=== PATIENT | male | born 2000 | race Asian ===

== ENCOUNTER 2022-06-02 11:29 | Inpatient (IN) ==
[2022-06-02] MEDS ORDERED: SODIUM CHLORIDE 0.9% 1000ML 1,000 ML IV ONE ×2 (11:44→14:11)
--- NOTE | 2022-06-02 11:49 | Emergency Department Note ---
History of Present Illness General Chief complaint: Abdominal Pain Stated complaint: REF BY DR APPENDICITIS Time Seen by Provider: 06/02/22 11:32 Source: patient, family and old records reviewed Mode of arrival: ambulatory History of Present Illness Maximum Pain Intensity: 1 This patient is a 22-year-old male who comes in complaint of abdominal pain and nausea. He seen here last evening and had nausea and emesis he went home and took Zofran he got worse throughout the night and he did have nausea and abdominal pain he says it comes in waves it in the lower abdomen. He saw primary doctor today who ordered outpatient ultrasound and shows appendicitis with possible rupture at present he feels okay. Nothing particular makes it better or worse is a slight fever no testicular pain or swelling no dysuria hematuria he was constipated until today when he had some diarrhea. He has had no real food since Sunday and has had just sips of clears. He has been throwing up most of that. Home Medications Medication Instructions Recorded Confirmed Type ondansetron 4 mg disintegrating 4 mg PO Q8H PRN nausea and 06/01/22 06/02/22 Rx tablet vomiting #30 tabs Allergies Allergy/AdvReac Type Severity Reaction Status Date / Time Penicillins AdvReac Mild Hives Verified 06/02/22 16:15 Past Med/Surg History Medical History No pertinent family history No pertinent past medical history Surgical History No pertinent past surgical history Social History Smoking Status: Never smoker Preferred Language: Malay Feels Safe at Home: Yes Immunizations: Past med history denies any significant past medical history of surgery All-penicillin which gave him hives as a child Social historydoes not smoke. Drinks occasionally. Occasional marijuana but none recently Review of Systems A total of 10 systems reviewed and were otherwise negative Physical Exam Vital Signs Vital Signs - 24 hr 06/02/22 11:32 06/02/22 13:23 06/02/22 13:35 Temperature 36.8 C Temperature Source Temporal Artery Scan Pulse Rate 70 Pulse Rate [Right Finger] 63 Respiratory Rate 18 16 Respiratory Effort / Characteristics Non-Labored Spontaneous Non-Labored Respiratory Depth Normal Normal Respiratory Pattern Regular Blood Pressure 159/94 H Blood Pressure [Right Arm] 155/79 H Blood Pressure Mean 115 Blood Pressure Mean [Right Arm] 104 Blood Pressure Position Sitting Pulse Oximetry 98 99 98 Oxygen Delivery Method Room Air Room Air Sepsis Recent Fever Within 48 Hours No Sepsis New/Unexplained Change in Mental Status No Sepsis Action Taken by Nursing No Action Required General: Well developed well nourished [id number] young male who appears in no acute distress, breathing comfortably on room air. Normal speech HEENT: Normal cephalic atraumatic. Pupils are equal round and reactive to light. Extraocular movements are intact. Oropharynx is pink with moist mucous membranes. No swelling of the mouth lips or tongue. Neck: Supple with a midline trachea. No meningeal signs or stiffness, no JVD or bruits. No Stridor. Chest: Clear to auscultation bilaterally. No wheezes or rhonchi. No increased work of breathing. Heart: Regular rate and rhythm without murmurs or gallops. Abdomen: Soft, mildly tender in the right lower abdomen but nondistended without rebound guarding or rigidity. Extremities: No cyanosis clubbing or edema. No calf tenderness or assymetry Spine/Back. Non tender to palpation. No CVA tenderness Skin: Good turgor without rashes. Neurologic exam: Cranial nerves two through 12 are intact. Motor and sensation are intact and symmetrical throughout. Course Administered Medications Discontinued Medications Sodium Chloride (Nss 1000ml) 1,000 mls @ 999 mls/hr IV .Q1H1M ONE Stop: 06/02/22 12:44 Last Infusion: 06/02/22 13:14 Dose: 0 mls/hr Documented By: Admin: 06/02/22 12:06 Dose: 999 mls/hr Documented By: DELL Sodium Chloride (Nss 1000ml) 1,000 mls @ 999 mls/hr IV .Q1H1M ONE Stop: 06/02/22 15:11 Last Infusion: 06/02/22 15:23 Dose: 0 mls/hr Documented By: Admin: 06/02/22 14:16 Dose: 999 mls/hr Documented By: DALE Morphine Sulfate (Morphine Sulfate 2 Mg/Ml Carp) 2 mg IV NOW STA Stop: 06/02/22 13:20 Last Admin: 06/02/22 13:23 Dose: 2 mg Documented By: DELL Morphine Sulfate (Morphine Sulfate 4 Mg/Ml 1 Ml Carp\Vial) 4 mg IV NOW STA Stop: 06/02/22 14:00 Last Admin: 06/02/22 14:06 Dose: 4 mg Documented By: ABYK Ondansetron HCl (Ondansetron Inj 2 Mg/Ml 2 Ml Vial) 4 mg IV NOW STA Stop: 06/02/22 13:20 Last Admin: 06/02/22 13:23 Dose: 4 mg Documented By: DELL Ondansetron HCl (Ondansetron Inj 2 Mg/Ml 2 Ml Vial) 4 mg IV NOW STA Stop: 06/02/22 14:11 Last Admin: 06/02/22 14:17 Dose: 4 mg Documented By: ABYK Medical Decision Making Differential Diagnosis Appendicitis, ruptured appendicitis, sepsis, electrolyte or metabolic abnormality, dehydration Medical Records Attestation: I reviewed the patient's medical records. Home Medications Current Medication List: was personally reviewed by me Laboratory Data Attestation: I reviewed the patient's lab results. 06/02/22 12:05 06/02/22 12:05 Lab Results 06/02/22 06/02/22 06/02/22 Range/Units 12:05 12:05 12:05 WBC 9.05 (4.8-10.8) K/ul RBC 5.52 (4.70-6.10) M/uL Hgb 16.1 (14.0-18.0) g/dl Hct 48.0 (42.0-52.0) % MCV 87.0 (80.0-100.0) fL MCH 29.2 (25.0-34.0) pg MCHC 33.5 (32.0-36.0) g/dL RDW Std Deviation 39.6 (36.4-46.3) fL RDW Coeff of Paulina 12.5 (11.5-14.5) % Plt Count 256 (130-400) K/uL MPV 11.3 (9.4-12.4) fL Immature Gran % (Auto) 0.2 % Neut % (Auto) 78.9 % Lymph % (Auto) 14.5 % [place] % (Auto) 6.3 % Eos % (Auto) 0.0 % Baso % (Auto) 0.1 % Neut # (Auto) 7.14 H (1.40-6.50) K/uL Lymph # (Auto) 1.31 (1.2-3.4) K/uL [place] # (Auto) 0.57 (0.11-0.59) K/uL Eos # (Auto) 0.00 (0-0.50) K/uL Baso # (Auto) 0.01 (0-0.2) K/uL Immature Gran # (Auto) 0.02 (0.01-0.20) K/uL PT 10.9 (9.0-12.0) Seconds INR 1.0 (0.9-1.1) APTT 28.6 (21.0-31.0) Seconds PTT Ratio 1.0 Sodium 138 (136-145) mmol/L Potassium 3.2 L (3.5-5.1) mmol/L Chloride 99 (98-107) mmol/L Carbon Dioxide 27 (21-32) mmol/L Anion Gap 12 H (3-11) BUN 11 (6-23) mg/dl Creatinine 0.74 (0.6-1.4) mg/dl Est Cr Clr Drug Dosing 155.9 ml/min Est GFR ( Amer) > 150.0 ml/min Est GFR (Non-Af Amer) 130.9 ml/min BUN/Creatinine Ratio 14.9 (10-20) Glucose 88 (70-99(Fasting)) mg/dl Calcium 10.0 (8.5-10.1) mg/dl Total Bilirubin 1.3 H (0.2-1.0) mg/dl AST 17 (13-39) U/L ALT 12 (7-52) U/L Alkaline Phosphatase 42 (34-104) U/L Total Protein 8.5 H (6.0-8.3) gm/dl Albumin 5.5 H (3.4-5.0) gm/dl Globulin 3.0 (2.5-4.0) gm/dl Albumin/Globulin Ratio 1.8 (0.9-2) Lipase 8 L (11-82) U/L SARS-CoV-2, RNA, NAAT (NEGATIVE) 06/02/22 Range/Units 12:08 WBC (4.8-10.8) K/ul RBC (4.70-6.10) M/uL Hgb (14.0-18.0) g/dl Hct (42.0-52.0) % MCV (80.0-100.0) fL MCH (25.0-34.0) pg MCHC (32.0-36.0) g/dL RDW Std Deviation (36.4-46.3) fL RDW Coeff of Paulina (11.5-14.5) % Plt Count (130-400) K/uL MPV (9.4-12.4) fL Immature Gran % (Auto) % Neut % (Auto) % Lymph % (Auto) % [place] % (Auto) % Eos % (Auto) % Baso % (Auto) % Neut # (Auto) (1.40-6.50) K/uL Lymph # (Auto) (1.2-3.4) K/uL [place] # (Auto) (0.11-0.59) K/uL Eos # (Auto) (0-0.50) K/uL Baso # (Auto) (0-0.2) K/uL Immature Gran # (Auto) (0.01-0.20) K/uL PT (9.0-12.0) Seconds INR (0.9-1.1) APTT (21.0-31.0) Seconds PTT Ratio Sodium (136-145) mmol/L Potassium (3.5-5.1) mmol/L Chloride (98-107) mmol/L Carbon Dioxide (21-32) mmol/L Anion Gap (3-11) BUN (6-23) mg/dl Creatinine (0.6-1.4) mg/dl Est Cr Clr Drug Dosing ml/min Est GFR ( Amer) ml/min Est GFR (Non-Af Amer) ml/min BUN/Creatinine Ratio (10-20) Glucose (70-99(Fasting)) mg/dl Calcium (8.5-10.1) mg/dl Total Bilirubin (0.2-1.0) mg/dl AST (13-39) U/L ALT (7-52) U/L Alkaline Phosphatase (34-104) U/L Total Protein (6.0-8.3) gm/dl Albumin (3.4-5.0) gm/dl Globulin (2.5-4.0) gm/dl Albumin/Globulin Ratio (0.9-2) Lipase (11-82) U/L SARS-CoV-2, RNA, NAAT POSITIVE A* (NEGATIVE) Imaging Data Radiologist's Impression: US appendix HISTORY: 22 years-old Male r/o appendicitis. Acute right lower quadrant abdominal pain COMPARISON: Acute abdominal series radiographs 06/01/2022 TECHNIQUE: Multiple real-time sonographic images of the abdominal right lower quadrant were obtained assessing grayscale appearance and color flow FINDINGS: There is a tubular blind-ending noncompressible structure within the abdominal right lower quadrant which is hyperemic measuring up to 8 mm transversely. This demonstrates a thickened wall measuring up to 2.5 cm. Possible focal area of wall discontinuity. No drainable fluid collections. There is increased echogenicity of the periappendiceal fat. IMPRESSION: Acute appendicitis with possible discontinuity of the wall, equivocal for perforation. No abscess identified. The patient was instructed to go straight from this outpatient facility to the ER. MDM Narrative This patient comes in as scribed above. He was sent over after being found to have acute appendicitis with possible rupture in the outpatient ultrasound. He says he feels okay at present. He has stable vital signs. He was kept NPO. IV X established hydrated 1 L normal saline bolus, he was COVID tested and blood work was obtained I did consult surgery as well. I did talk to Dr. Lurdes Alanis, the surgeon on-call and explained the case and the findings. She agrees with the plan and both her and her physician back office medical assistant came to see the patient in the emergency department. I also touch base and talk to them at length while they were here. his white count is not elevated. He has no severe electrolyte or me tabolic abnormalities. The patient has had some intermittent pain and did get IV morphine x2 as well as IV Zofran. He is resting comfortably with this. His COVID test did come back positive. He will be admitted for further treatment and evaluation antibiotics and likely surgery. Impression & Plan Acute appendicitis, Nausea & vomiting, Abdominal pain, COVID Discharge Plan Visit Data Chief Complaint: Abdominal Pain Stated Complaint: REF BY DR, APPENDICITIS ED Provider: Moiz Lozada Discharge Problem: Acute appendicitis, Nausea & vomiting, Abdominal pain, COVID Patient Disposition: Admitted As Inpatient Discharge Instructions Interventions: ED Discharge Assessment Last Done: 06/02/22 16:40
[2022-06-02 12:38] LABS: Basophils # (auto) 0.01 K/uL (0-0.2); Basophils % (auto) 0.1 %; Hemoglobin 16.1 g/dl (14.0-18.0); Immature Granulocytes # (auto) 0.02 K/uL (0.01-0.20); Immature Granulocytes % (auto) 0.2 %; Lymphocytes # (auto) 1.31 K/uL (1.2-3.4); Lymphocytes % (auto) 14.5 %; Mean Corpuscular Hemoglobin 29.2 pg (25.0-34.0); Mean Corpuscular Hgb Conc 33.5 g/dL (32.0-36.0); Mean Platelet Volume 11.3 fL (9.4-12.4); Monocytes # (auto) 0.57 K/uL (0.11-0.59); Monocytes % (auto) 6.3 %; Neutrophils # (auto) 7.14 K/uL (1.40-6.50); Neutrophils % (auto) 78.9 %; Platelet Count 256 K/uL (130-400); RDW Coefficient of Variation 12.5 % (11.5-14.5); RDW Standard Deviation 39.6 fL (36.4-46.3); Red Blood Count 5.52 M/uL (4.70-6.10); White Blood Count 9.05 K/ul (4.8-10.8)
[2022-06-02 12:49] LABS: Partial Thromboplastin Time 28.6 Seconds (21.0-31.0); Prothrombin Time 10.9 Seconds (9.0-12.0)
--- NOTE | 2022-06-02 12:53 | Surgery Consultation ---
Date of Consultation June 02, 2022 Assessment & Plan (1) Acute appendicitis: Unusual presentation for acute appendicitis with predominant symptoms of nausea and vomiting. US however shows dilated appendix with focal wall discontinuity c/w acute appendicitis. Discussed laparoscopic appendectomy with risks of bleeding, infection, negative appy (US incorrect), abscess, postop ileus, conversion to open. Expected overnight hospital stay and 2 week recovery period reviewed. Consent signed. For OR today. Possible slight perforation (wall discontinuity) but no sign of abscess. Thus, will likely do better with operative intervention. History of Present Illness Reason for Consultation: US showing acute appendicitis Requesting Physician: Moiz Lozada MD History of Present Illness 22 yr old man seen in ER for persistent nausea and vomiting associated with intermittent abdominal pain, starting on Sun. Thought he might have food po isoning as he had eaten deli meat. Seen in ER and abdominal xrays unremarkable. Sent home after symptoms improved with zofran. The symptoms recurred and he has been unable to keep anything down. Gets episodes of moderate - severe intensity sharp stabbing pain in the mid abdomen, lasts a few hours at a time, not related to activity or eating. Saw his pcp and US ordered. This showed acute appendici tis with focal discontinuity of the wall. Still feels overall weak and lightheaded. No fevers/ chills. No similar symptoms. No sick contacts. Only prior medical procedure was wisdom teeth removal. Allergies Allergy/AdvReac Type Severity Reaction Status Date / Time Penicillins AdvReac Mild Hives Verified 06/02/22 08:59 Home Medications Medication Instructions Recorded Confirmed Type ondansetron 4 mg disintegrating 4 mg PO Q8H PRN nausea and 06/01/22 06/02/22 Rx tablet vomiting #30 tabs Patient History Medical History No pertinent family history No pertinent past medical history Surgical History No pertinent past surgical history Social History Smoking Status: Never smoker Preferred Language: Australian Feels Safe at Home: Yes Review of Systems Review of Systems: All systems reviewed & are unremarkable except as noted in HPI & below Physical Exam Constitutional: WD/WN, vitals as above Eyes: PERRL, conjunctivae normal, anicteric sclerae ENMT: external ear and nose normal, oropharynx normal Respiratory: normal respiratory effort, lungs clear to auscultation Cardiovascular: RRR, no murmur, no edema Gastrointestinal (Abdomen): Inspection/Auscultation: abdomen normal to inspection and normal bowel sounds; abdomen not distended Percussion/Palpation: abdomen soft; abdomen nontender and no guarding Musculoskeletal: no cyanosis or clubbing, extremities motor strength 5/5 Neurologic: awake; no focal motor deficits Psychiatric: A+Ox3, euthymic affect Results & Data ([facility]) Vital Signs (Past 12 Hours) Vital Signs Temp Pulse Resp BP Pulse Ox O2 Del Method 06/02/22 11:32 36.8 C 70 18 159/94 H 98 Room Air Laboratory Results 06/02/22 06/02/22 06/02/22 Range/Units 12:08 12:05 12:05 WBC (4.8-10.8) K/ul RBC (4.70-6.10) M/uL Hgb (14.0-18.0) g/dl Hct (42.0-52.0) % MCV (80.0-100.0) fL MCH (25.0-34.0) pg MCHC (32.0-36.0) g/dL RDW Std Deviation (36.4-46.3) fL RDW Coeff of Paulina (11.5-14.5) % Plt Count (130-400) K/uL MPV (9.4-12.4) fL Immature Gran % (Auto) % Neut % (Auto) % Lymph % (Auto) % [place] % (Auto) % Eos % (Auto) % Baso % (Auto) % Neut # (Auto) (1.40-6.50) K/uL Lymph # (Auto) (1.2-3.4) K/uL [place] # (Auto) (0.11-0.59) K/uL Eos # (Auto) (0-0.50) K/uL Baso # (Auto) (0-0.2) K/uL Immature Gran # (Auto) (0.01-0.20) K/uL PT 10.9 (9.0-12.0) Seconds INR 1.0 (0.9-1.1) APTT 28.6 (21.0-31.0) Seconds PTT Ratio 1.0 Sodium Pending Potassium Pending Chloride Pending Carbon Dioxide Pending Anion Gap Pending BUN Pending Creatinine Pending Est Cr Clr Drug Dosing Pending Est GFR ( Amer) Pending Est GFR (Non-Af Amer) Pending BUN/Creatinine Ratio Pending Glucose Pending Calcium Pending Total Bilirubin Pending AST Pending ALT Pending Alkaline Phosphatase Pending Total Protein Pending Albumin Pending Globulin Pending Albumin/Globulin Ratio Pending Lipase Pending SARS-CoV-2, RNA, NAAT POSITIVE A* (NEGATIVE) 06/02/22 Range/Units 12:05 WBC 9.05 (4.8-10.8) K/ul RBC 5.52 (4.70-6.10) M/uL Hgb 16.1 (14.0-18.0) g/dl Hct 48.0 (42.0-52.0) % MCV 87.0 (80.0-100.0) fL MCH 29.2 (25.0-34.0) pg MCHC 33.5 (32.0-36.0) g/dL RDW Std Deviation 39.6 (36.4-46.3) fL RDW Coeff of Paulina 12.5 (11.5-14.5) % Plt Count 256 (130-400) K/uL MPV 11.3 (9.4-12.4) fL Immature Gran % (Auto) 0.2 % Neut % (Auto) 78.9 % Lymph % (Auto) 14.5 % [place] % (Auto) 6.3 % Eos % (Auto) 0.0 % Baso % (Auto) 0.1 % Neut # (Auto) 7.14 H (1.40-6.50) K/uL Lymph # (Auto) 1.31 (1.2-3.4) K/uL [place] # (Auto) 0.57 (0.11-0.59) K/uL Eos # (Auto) 0.00 (0-0.50) K/uL Baso # (Auto) 0.01 (0-0.2) K/uL Immature Gran # (Auto) 0.02 (0.01-0.20) K/uL PT (9.0-12.0) Seconds INR (0.9-1.1) APTT (21.0-31.0) Seconds PTT Ratio Sodium Potassium Chloride Carbon Dioxide Anion Gap BUN Creatinine Est Cr Clr Drug Dosing Est GFR ( Amer) Est GFR (Non-Af Amer) BUN/Creatinine Ratio Glucose Calcium Total Bilirubin AST ALT Alkaline Phosphatase Total Protein Albumin Globulin Albumin/Globulin Ratio Lipase SARS-CoV-2, RNA, NAAT (NEGATIVE) Diagnostic Findings US appendix HISTORY: 22 years-old Male r/o appendicitis. Acute right lower quadrant abdominal pain COMPARISON: Acute abdominal series radiographs 06/01/2022 TECHNIQUE: Multiple real-time sonographic images of the abdominal right lower quadrant were obtained assessing grayscale appearance and color flow FINDINGS: There is a tubular blind-ending noncompressible structure within the abdominal right lower quadrant which is hyperemic measuring up to 8 mm transversely. This demonstrates a thickened wall measuring up to 2.5 cm. Possible focal area of wall discontinuity. No drainable fluid collections. There is increased echogenicity of the periappendiceal fat. IMPRESSION: Acute appendicitis with possible discontinuity of the wall, equivocal for perforation. No abscess identified. The patient was instructed to go straight from this outpatient facility to the ER. ACT 112: Negative or not required by law. The above report was generated using voice recognition software. It may contain grammatical, syntax or spelling errors.
[2022-06-02 12:58] LABS: Albumin Level 5.5 gm/dl (3.4-5.0); Anion Gap 12 (3-11); Bilirubin,Total 1.3 mg/dl (0.2-1.0); Carbon Dioxide 27 mmol/L (21-32); Chloride 99 mmol/L (98-107); Potassium 3.2 mmol/L (3.5-5.1); Sodium 138 mmol/L (136-145)
[2022-06-02 13:04] LABS: Alanine Aminotransferase 12 U/L (7-52); Albumin Globulin Ratio 1.8 (0.9-2); Alkaline Phosphatase 42 U/L (34-104); Aspartate Aminotransferase 17 U/L (13-39); BUN Creatinine Ratio 14.9 (10-20); Blood Urea Nitrogen 11 mg/dl (6-23); Creatinine Clr Calc Pharmacy 155.9 ml/min; Est GFR (African American) > 150.0 ml/min; Est GFR (Non-African American) 130.9 ml/min; Glucose 88 mg/dl (70-99(Fasting)); Lipase 8 U/L (11-82); Total Protein 8.5 gm/dl (6.0-8.3)
[2022-06-02] MEDS ORDERED: ONDANSETRON INJ 2 MG/ML 2 ML VIAL IV STA ×2 (13:19→14:10)
[2022-06-02] MEDS ORDERED: MoRPHine SULFATE 2 MG/ML CARP IV STA (13:19)
[2022-06-02] MEDS ORDERED: MoRPHine SULFATE 4 MG/ML 1 ML CARP\\VIAL IV STA (13:59)
[2022-06-02] MEDS ORDERED: MoRPHine SULFATE 2 MG/ML CARP IV PRN (17:00)
[2022-06-02] MEDS: SODIUM CHLORIDE 0.9% 1000ML 1,000 ML IV SCH (18:48)
[2022-06-02] MEDS: metroNIDAZOLE 500 MG/100 ML BAG IV SCH (18:50)
[2022-06-02] MEDS: CIPROFLOXACIN / D5W 400 MG/200 ML BAG IV SCH (18:51)
[2022-06-02] MEDS: MoRPHine SULFATE 4 MG/ML 1 ML CARP\\VIAL IV PRN (19:32)
[2022-06-02] MEDS: ONDANSETRON INJ 2 MG/ML 2 ML VIAL IV PRN (19:41)
[2022-06-03] MEDS: metroNIDAZOLE 500 MG/100 ML BAG IV SCH ×3 (01:49→16:46)
[2022-06-03] MEDS: SODIUM CHLORIDE 0.9% 1000ML 1,000 ML IV SCH ×2 (01:50→12:09)
[2022-06-03] MEDS: CIPROFLOXACIN / D5W 400 MG/200 ML BAG IV SCH ×2 (05:34→17:50)
[2022-06-03 06:08] LABS: Appearance Urine Clear (Clear); Bilirubin Urine Negative (Negative); Blood Urine Negative (Negative); Color Urine Orange; Glucose Urine UA Negative (Negative); Ketones Urine 3+ (Negative); Leukocyte Esterase Urine Negative (Negative); Nitrite Urine Negative (Negative); Protein Urine Negative (Negative); Urobilinogen Urine Negative (Negative)
[2022-06-03 07:38] LABS: Basophils # (auto) 0.02 K/uL (0-0.2); Basophils % (auto) 0.3 %; Eosinophils # (auto) 0.01 K/uL (0-0.50); Eosinophils % (auto) 0.1 %; Hematocrit (blood only) 37.9 % (42.0-52.0); Hemoglobin 12.6 g/dl (14.0-18.0); Immature Granulocytes # (auto) 0.02 K/uL (0.01-0.20); Immature Granulocytes % (auto) 0.3 %; Lymphocytes # (auto) 2.06 K/uL (1.2-3.4); Lymphocytes % (auto) 30.4 %; Mean Corpuscular Hemoglobin 29.1 pg (25.0-34.0); Mean Corpuscular Hgb Conc 33.2 g/dL (32.0-36.0); Mean Corpuscular Volume 87.5 fL (80.0-100.0); Mean Platelet Volume 11.4 fL (9.4-12.4); Monocytes % (auto) 8.8 %; Neutrophils # (auto) 4.07 K/uL (1.40-6.50); Neutrophils % (auto) 60.1 %; Platelet Count 193 K/uL (130-400); RDW Coefficient of Variation 12.4 % (11.5-14.5); Red Blood Count 4.33 M/uL (4.70-6.10); White Blood Count 6.78 K/ul (4.8-10.8)
[2022-06-03 07:55] LABS: Anion Gap 5 (3-11); Calcium 8.5 mg/dl (8.5-10.1); Carbon Dioxide 28 mmol/L (21-32); Chloride 104 mmol/L (98-107); Potassium 3.2 mmol/L (3.5-5.1); Sodium 137 mmol/L (136-145)
[2022-06-03 08:01] LABS: BUN Creatinine Ratio 13.3 (10-20); Blood Urea Nitrogen 10 mg/dl (6-23); Creatinine Clr Calc Pharmacy 154.1 ml/min; Est GFR (African American) > 150.0 ml/min; Est GFR (Non-African American) 130.2 ml/min; Glucose 114 mg/dl (70-99(Fasting))
[2022-06-03] MEDS: ONDANSETRON INJ 2 MG/ML 2 ML VIAL IV PRN ×2 (08:13→14:40)
[2022-06-03] MEDS: MoRPHine SULFATE 4 MG/ML 1 ML CARP\\VIAL IV PRN ×2 (08:13→14:34)
--- NOTE | 2022-06-03 08:43 | Surgery Progress Note ---
Date of Service June 03, 2022 Assessment & Plan (1) Acute appendicitis: Plan: Unusual presentation for acute appendicitis with predominant symptoms of nausea and vomiting. US however shows dilated appendix with focal wall discontinuity c/w acute appendicitis. Discussed laparoscopic appendectomy with risks of bleeding, infection, negative appy (US incorrect), abscess, postop ileus, conversion to open. Expected overnight hospital stay and 2 week recovery period reviewed. Consent signed yesterday. Covid positive but not improving with antibiotics. Symptoms persistent and worse. Still with normal wbc count. Will plan on OR today - his last PO intake was around 5 am. Will make npo. Understands higher risk of pulmonary complications given covid positivity. Possible slight perforation (wall discontinuity) but no sign of abscess. Thus, will likely do better with operative intervention. Admission and Anticipated Discharge Date Admission Date: June 02, 2022 Subjective Still with nausea and vomiting. Pain is worse, feels short of breath when retching. Review of Systems Review of Systems: All systems reviewed & are unremarkable except as noted in HPI & below Physical Exam Constitutional: WD/WN, vitals as above Eyes: PERRL, conjunctivae normal, anicteric sclerae ENMT: external ear and nose normal, oropharynx normal Respiratory: normal respiratory effort, lungs clear to auscultation Cardiovascular: RRR, no murmur, no edema Gastrointestinal (Abdomen): Inspection/Auscultation: abdomen normal to inspection and normal bowel sounds; abdomen not distended Percussion/Palpation: abdomen soft; abdomen nontender and no guarding Musculoskeletal: no cyanosis or clubbing, extremities motor strength 5/5 Neurologic: awake; no focal motor deficits Psychiatric: A+Ox3, euthymic affect Results & Data ([facility]) Vital Signs (Past 12 Hours) Vital Signs Temp Pulse Resp BP Pulse Ox O2 Del Method 06/02/22 22:30 36.8 C 58 L 16 109/65 98 Room Air Laboratory Results 06/03/22 06/03/22 06/03/22 Range/Units 06:39 06:39 05:30 WBC 6.78 (4.8-10.8) K/ul RBC 4.33 L (4.70-6.10) M/uL Hgb 12.6 L D (14.0-18.0) g/dl Hct 37.9 L (42.0-52.0) % MCV 87.5 (80.0-100.0) fL MCH 29.1 (25.0-34.0) pg MCHC 33.2 (32.0-36.0) g/dL RDW Std Deviation 40.0 (36.4-46.3) fL RDW Coeff of Paulina 12.4 (11.5-14.5) % Plt Count 193 (130-400) K/uL MPV 11.4 (9.4-12.4) fL Immature Gran % (Auto) 0.3 % Neut % (Auto) 60.1 % Lymph % (Auto) 30.4 % [place] % (Auto) 8.8 % Eos % (Auto) 0.1 % Baso % (Auto) 0.3 % Neut # (Auto) 4.07 (1.40-6.50) K/uL Lymph # (Auto) 2.06 (1.2-3.4) K/uL [place] # (Auto) 0.60 H (0.11-0.59) K/uL Eos # (Auto) 0.01 (0-0.50) K/uL Baso # (Auto) 0.02 (0-0.2) K/uL Immature Gran # (Auto) 0.02 (0.01-0.20) K/uL PT (9.0-12.0) Seconds INR (0.9-1.1) APTT (21.0-31.0) Seconds PTT Ratio Sodium 137 (136-145) mmol/L Potassium 3.2 L (3.5-5.1) mmol/L Chloride 104 (98-107) mmol/L Carbon Dioxide 28 (21-32) mmol/L Anion Gap 5 (3-11) BUN 10 (6-23) mg/dl Creatinine 0.75 (0.6-1.4) mg/dl Est Cr Clr Drug Dosing 154.1 ml/min Est GFR ( Amer) > 150.0 ml/min Est GFR (Non-Af Amer) 130.2 ml/min BUN/Creatinine Ratio 13.3 (10-20) Glucose 114 H (70-99(Fasting)) mg/dl Calcium 8.5 (8.5-10.1) mg/dl Total Bilirubin (0.2-1.0) mg/dl AST (13-39) U/L ALT (7-52) U/L Alkaline Phosphatase (34-104) U/L Total Protein (6.0-8.3) gm/dl Albumin (3.4-5.0) gm/dl Globulin (2.5-4.0) gm/dl Albumin/Globulin Ratio (0.9-2) Lipase (11-82) U/L Urine Color [place] Urine Appearance Clear (Clear) Urine pH 6.0 (4.5-7.5) Ur Specific [place] 1.020 (1.000-1.030) Urine Protein Negative (Negative) Urine Glucose (UA) Negative (Negative) Urine Ketones 3+ H (Negative) Urine Blood Negative (Negative) Urine Nitrite Negative (Negative) Urine Bilirubin Negative (Negative) Urine Urobilinogen Negative (Negative) Ur Leukocyte Esterase Negative (Negative) SARS-CoV-2, RNA, NAAT (NEGATIVE) 06/02/22 06/02/22 06/02/22 Range/Units 12:08 12:05 12:05 WBC (4.8-10.8) K/ul RBC (4.70-6.10) M/uL Hgb (14.0-18.0) g/dl Hct (42.0-52.0) % MCV (80.0-100.0) fL MCH (25.0-34.0) pg MCHC (32.0-36.0) g/dL RDW Std Deviation (36.4-46.3) fL RDW Coeff of Paulina (11.5-14.5) % Plt Count (130-400) K/uL MPV (9.4-12.4) fL Immature Gran % (Auto) % Neut % (Auto) % Lymph % (Auto) % [place] % (Auto) % Eos % (Auto) % Baso % (Auto) % Neut # (Auto) (1.40-6.50) K/uL Lymph # (Auto) (1.2-3.4) K/uL [place] # (Auto) (0.11-0.59) K/uL Eos # (Auto) (0-0.50) K/uL Baso # (Auto) (0-0.2) K/uL Immature Gran # (Auto) (0.01-0.20) K/uL PT 10.9 (9.0-12.0) Seconds INR 1.0 (0.9-1.1) APTT 28.6 (21.0-31.0) Seconds PTT Ratio 1.0 Sodium 138 (136-145) mmol/L Potassium 3.2 L (3.5-5.1) mmol/L Chloride 99 (98-107) mmol/L Carbon Dioxide 27 (21-32) mmol/L Anion Gap 12 H (3-11) BUN 11 (6-23) mg/dl Creatinine 0.74 (0.6-1.4) mg/dl Est Cr Clr Drug Dosing 155.9 ml/min Est GFR ( Amer) > 150.0 ml/min Est GFR (Non-Af Amer) 130.9 ml/min BUN/Creatinine Ratio 14.9 (10-20) Glucose 88 (70-99(Fasting)) mg/dl Calcium 10.0 (8.5-10.1) mg/dl Total Bilirubin 1.3 H (0.2-1.0) mg/dl AST 17 (13-39) U/L ALT 12 (7-52) U/L Alkaline Phosphatase 42 (34-104) U/L Total Protein 8.5 H (6.0-8.3) gm/dl Albumin 5.5 H (3.4-5.0) gm/dl Globulin 3.0 (2.5-4.0) gm/dl Albumin/Globulin Ratio 1.8 (0.9-2) Lipase 8 L (11-82) U/L Urine Color Urine Appearance (Clear) Urine pH (4.5-7.5) Ur Specific [place] (1.000-1.030) Urine Protein (Negative) Urine Glucose (UA) (Negative) Urine Ketones (Negative) Urine Blood (Negative) Urine Nitrite (Negative) Urine Bilirubin (Negative) Urine Urobilinogen (Negative) Ur Leukocyte Esterase (Negative) SARS-CoV-2, RNA, NAAT POSITIVE A* (NEGATIVE) 06/02/22 Range/Units 12:05 WBC 9.05 (4.8-10.8) K/ul RBC 5.52 (4.70-6.10) M/uL Hgb 16.1 (14.0-18.0) g/dl Hct 48.0 (42.0-52.0) % MCV 87.0 (80.0-100.0) fL MCH 29.2 (25.0-34.0) pg MCHC 33.5 (32.0-36.0) g/dL RDW Std Deviation 39.6 (36.4-46.3) fL RDW Coeff of Paulina 12.5 (11.5-14.5) % Plt Count 256 (130-400) K/uL MPV 11.3 (9.4-12.4) fL Immature Gran % (Auto) 0.2 % Neut % (Auto) 78.9 % Lymph % (Auto) 14.5 % [place] % (Auto) 6.3 % Eos % (Auto) 0.0 % Baso % (Auto) 0.1 % Neut # (Auto) 7.14 H (1.40-6.50) K/uL Lymph # (Auto) 1.31 (1.2-3.4) K/uL [place] # (Auto) 0.57 (0.11-0.59) K/uL Eos # (Auto) 0.00 (0-0.50) K/uL Baso # (Auto) 0.01 (0-0.2) K/uL Immature Gran # (Auto) 0.02 (0.01-0.20) K/uL PT (9.0-12.0) Seconds INR (0.9-1.1) APTT (21.0-31.0) Seconds PTT Ratio Sodium (136-145) mmol/L Potassium (3.5-5.1) mmol/L Chloride (98-107) mmol/L Carbon Dioxide (21-32) mmol/L Anion Gap (3-11) BUN (6-23) mg/dl Creatinine (0.6-1.4) mg/dl Est Cr Clr Drug Dosing ml/min Est GFR ( Amer) ml/min Est GFR (Non-Af Amer) ml/min BUN/Creatinine Ratio (10-20) Glucose (70-99(Fasting)) mg/dl Calcium (8.5-10.1) mg/dl Total Bilirubin (0.2-1.0) mg/dl AST (13-39) U/L ALT (7-52) U/L Alkaline Phosphatase (34-104) U/L Total Protein (6.0-8.3) gm/dl Albumin (3.4-5.0) gm/dl Globulin (2.5-4.0) gm/dl Albumin/Globulin Ratio (0.9-2) Lipase (11-82) U/L Urine Color Urine Appearance (Clear) Urine pH (4.5-7.5) Ur Specific [place] (1.000-1.030) Urine Protein (Negative) Urine Glucose (UA) (Negative) Urine Ketones (Negative) Urine Blood (Negative) Urine Nitrite (Negative) Urine Bilirubin (Negative) Urine Urobilinogen (Negative) Ur Leukocyte Esterase (Negative) SARS-CoV-2, RNA, NAAT (NEGATIVE) (1) Acute appendicitis Acute appendicitis type: unspecified acute appendicitis type Qualified Code(s): K35.80 - Unspecified acute appendicitis
[2022-06-03] MEDS ORDERED: ONDANSETRON INJ 2 MG/ML 2 ML VIAL ONE (08:48)
[2022-06-03] MEDS ORDERED: ROCURONIUM BROMIDE 10 MG/ML 5 ML VIAL IV ONE (08:48)
[2022-06-03] MEDS ORDERED: MIDAZOLAM HCL 1 MG/ML 2ML VIAL ONE (08:48)
[2022-06-03] MEDS ORDERED: LIDOCAINE 2% MPF LOCAL 5 ML VIAL INFIL ONE (08:48)
[2022-06-03] MEDS ORDERED: fentaNYL citrate 100 MCG/2 ML VIAL ONE ×2 (08:48→13:47)
[2022-06-03] MEDS ORDERED: DEXAMETHASONE SOD INJ 4 MG/ML VIAL ONE (08:48)
[2022-06-03] MEDS ORDERED: PROPOFOL IV EMULSION 10 MG/ML 20 ML VIAL IV ONE (08:48)
[2022-06-03] MEDS: PROMETHAZINE HCL 12.5 MG in SODIUM CHLORIDE 0.9% 50 ML IV PRN (09:39)
[2022-06-03] MEDS ORDERED: PROMETHAZINE HCL 12.5 MG in SODIUM CHLORIDE 0.9% 50 ML IV PRN (10:16)
[2022-06-03] MEDS ORDERED: ePHEDrine sulfate 50 MG/ML AMP IV PRN (10:16)
[2022-06-03] MEDS ORDERED: ONDANSETRON INJ 2 MG/ML 2 ML VIAL IV PRN (10:16)
[2022-06-03] MEDS ORDERED: MoRPHine SULFATE 10 MG/ML CARP/VIAL IV PRN (10:16)
[2022-06-03] MEDS ORDERED: ATROPINE SULFATE 0.1 MG/ML 10ML SYR IV PRN (10:16)
[2022-06-03] MEDS ORDERED: MEPERIDINE HCL 25 MG/ML CARP/VIAL IV PRN (10:16)
--- NOTE | 2022-06-03 10:16 | Anesthesiology Consultation ---
Date of Service June 03, 2022 Assessment & Plan Chart Review Chart Review: Acceptable Risk for Surgery Consults Requested none ASA ASA2E Proposed Anesthesia Anesthesia Type: General Risk / Benefits Reviewed With: PT / POA / Parent / Guardian, Accepts Plan and Informed Consent Obtained Additional Comments: RSI, dry heaving all morning History Surgery Operation Date: 06/03/22 10:21 Proposed Procedures p Laparoscopic Appendectomy - Lurdes Alanis MD Height/Weight Height: 5 ft 10 in Weight: 70.5 kg Allergies Allergy/AdvReac Type Severity Reaction Status Date / Time Penicillins AdvReac Mild Hives Verified 06/02/22 16:15 Medications Home Medications Medication Instructions Recorded Confirmed Last Taken ondansetron 4 mg disintegrating 4 mg PO Q8H PRN nausea and 06/01/22 06/02/22 06/02/22 tablet vomiting #30 tabs Active Medications Generic Name Dose Route Start Last Admin Trade Name Freq PRN Reason Stop Dose Admin Promethazine HCl 12.5 mg/ 50.5 mls @ 204 mls/hr 06/02/22 17:00 06/03/22 10:17 Sodium Chloride IV 07/02/22 16:59 Infused Q6H PRN Infusion Nausea And Vomiting Sodium Chloride 1,000 mls @ 125 mls/hr 06/02/22 17:00 06/03/22 12:09 Nss 1000ml IV 07/02/22 16:59 Not Given .Q8H FILEMON Metronidazole 500 mg in 100 mls @ 100 mls/hr 06/02/22 17:00 06/03/22 09:27 Flagyl IV 06/12/22 16:59 Infused Q8H FILEMON Infusion Ciprofloxacin 400 mg in 200 mls @ 100 mls/hr 06/02/22 17:00 06/03/22 07:35 Cipro / D5w IV 06/12/22 16:59 Infused Q12H FILEMON Infusion Protocol Morphine Sulfate 4 mg 06/02/22 17:00 06/03/22 08:13 Morphine Sulfate 4 Mg/Ml 1 Ml Carp\Vial IV 06/16/22 16:59 4 mg Q3H PRN Administration Pain (6,7,8,9,10) Ondansetron HCl 4 mg 06/02/22 17:00 06/03/22 08:13 Ondansetron Inj 2 Mg/Ml 2 Ml Vial IV 07/02/22 16:59 4 mg Q4H PRN Administration Nausea And Vomiting NPO Date Last Intake of Fluids: 06/03/22 Time Last Intake of Fluids: 05:00 Date Last Intake of Solids: 06/02/22 Time Last Intake of Solids: 08:00 Past Medical History Medical History No pertinent family history No pertinent past medical history Exercise / Class Metabolic Activity 1 > 8 Run/Swim/Ski/Tennis Past Surgical History Surgical History (Updated 06/03/22 @ 12:17 by Josi Mcadams DO) H/O wisdom tooth extraction GETA ok Past Anesthesia History No Hx of Anesthesia Complications and No Family Hx of Anesthesia Complications History of PONV No Hx of PONV and No Hx of Motion Sickness Social History Smoking Status: Never smoker Hx Alcohol Use: Yes Alcohol type: hard liquor alcohol intake frequency: a few times a week Hx Substance Use: Yes substance use type: marijuana Last Used Substance Other:: last sunday 05/28 Physical Exam Vital Signs Last Vital Signs Temp 36.7 C 06/03/22 08:46 Pulse 51 L 06/03/22 08:46 Resp 20 06/03/22 08:46 BP 156/88 H 06/03/22 08:46 Pulse Ox 99 06/03/22 08:46 O2 Del Method 06/03/22 08:46 ENMT Mouth: no TMJ abnormality Thyromental Distance: > or= 3.5 Finger Breadths Mallampati Class: I Neck normal visual inspection and trachea midline; neck extension not limited Respiratory normal respiratory effort Auscultation: lungs clear to auscultation bilaterally asymp COVID + Cardiovascular Rate/Rhythm: regular rate and regular rhythm Heart Sounds: no murmur Musculoskeletal Spine: normal cervical ROM Extremities: full ROM of extremities Neurologic moves all extremities Psychiatric Orientation: alert and oriented x 3 Testing Laboratory Results 06/03/22 06:39 06/03/22 06:39 PT 10.9 Seconds (9.0-12.0) 06/02/22 12:05 INR 1.0 (0.9-1.1) 06/02/22 12:05 APTT 28.6 Seconds (21.0-31.0) 06/02/22 12:05 Urine Color [place] 06/03/22 05:30 Urine Appearance Clear (Clear) 06/03/22 05:30 Urine pH 6.0 (4.5-7.5) 06/03/22 05:30 Ur Specific [place] 1.020 (1.000-1.030) 06/03/22 05:30 Urine Protein Negative (Negative) 06/03/22 05:30 Urine Glucose (UA) Negative (Negative) 06/03/22 05:30 Urine Ketones 3+ (Negative) H 06/03/22 05:30 Urine Nitrite Negative (Negative) 06/03/22 05:30 Ur Leukocyte Esterase Negative (Negative) 06/03/22 05:30 COVID + 06/02/22
[2022-06-03] MEDS ORDERED: BUPIVACAINE 0.5 % 5 MG/1 ML MPF 30ML VIAL ONE (11:56)
[2022-06-03] MEDS ORDERED: SUCCINYLCHOLINE CHLORIDE 20 MG/ML 10 ML VIAL IV ONE (11:59)
--- NOTE | 2022-06-03 13:27 | Operative Report ---
Post Operative Report Pre & Post Diagnosis Operation Date: 06/03/22 10:21 Pre-Op Diagnosis: ACUTE APPENDICITIS Post-Op Diagnosis: ACUTE APPENDICITIS I identified the patient and participated in the time-out.: Yes Procedure Operation Date: 06/03/22 10:21 Actual Procedures p Laparoscopic Appendectomy(Not Applicable) - Lurdes Alanis MD Surgeon Lurdes Alanis MD Seamer none Estimated Blood Loss 5 Findings Consistent with Post-Op Diagnosis acute appendicitis Fluids 800 cc IVF Specimens appendix Drains none Anesthesia Type General Complications none Disposition Accompanied Patient To Recovery: No Disposition: Recovery Room Indications 22 yr old man with acute appendicitis presenting with pain, nausea and vomiting. Covid positive. Trial of antibiotics failed with persistent symptoms. Consented for lap appendectomy. Description of Procedure The patient received zosyn preoperatively. After placement of SCD's and induction of GET, his abdomen was clipped, and then sterilely prepped and draped. He was positioned in trendelenburg. A supraumbilical incision was made and a veress needle placed into the abdominal cavity. Initial pressure was 2 mmHg and this was taken to 15 mm Hg. A 12 mm trocar was placed with the camera through the trocar site. Two additional trocars were placed under direct vision - a 5 mm in the left lower quadrant and another 5 mm in the midline pubic area. The appendix was noted to be dilated and inflamed. No perforation was noted. No other intrabdominal pathology was noted. The appendix was grasped and a window created at the base on the cecum. It was divided off of the cecum with a firing of the MARIAN 45 purple load stapler. The appendiceal mesentary was taken with two sequential firings of the stapler using a gold load. The appendix was placed in an endobag and removed through the umbilical incision. The abdomen was irrigated and noted to be hemostatic. The trocars were removed. 30 cc of 0.5% marcaine had been used for local anesthesia. The fascia of the umbilical site was closed with 0 vicryl stitches placed anteriorly. The skin of all three sites was closed with running subcuticular 4-0 vicryl suture. Steristrips and sterile dressings were applied. He was awakened and taken to recovery in stable condition. I attest to the content of the Intraoperative Record and any orders documented therein. Any exceptions are noted below.
[2022-06-03] MEDS: fentaNYL citrate 100 MCG/2 ML VIAL IV PRN ×2 (13:49→13:54)
[2022-06-03] MEDS ORDERED: IBUPROFEN 200 MG TAB PO PRN (14:25)
[2022-06-03] MEDS ORDERED: oxyCODONE/ACETAMINOPHEN 5mg/325mg TAB PO PRN ×2 (14:25)
[2022-06-03] MEDS ORDERED: ACETAMINOPHEN 325 MG TAB PO PRN (14:25)
--- NOTE | 2022-06-03 14:28 | Anesthesiology Progress Note ---
Date of Service June 03, 2022 Anesthesia Post Procedure Vital Signs Vital Signs: Temp Pulse Pulse Resp BP Pulse Ox O2 Del Method 06/03/22 14:26 36.9 C 53 L 16 144/90 H 100 Room Air 06/03/22 14:10 49 L 13 137/91 99 Room Air 06/03/22 14:00 36.6 C 50 L 14 142/95 H 95 Room Air 06/03/22 13:50 55 L 12 140/100 100 Oxymask 06/03/22 13:40 54 L 14 113/89 100 Oxymask 06/03/22 13:33 36.4 C L 53 L 16 134/81 100 Oxymask 06/03/22 08:46 36.7 C 51 L 20 156/88 H 99 Room Air 06/02/22 22:30 36.8 C 58 L 16 109/65 98 Room Air 06/02/22 19:46 36.7 C 50 L 18 141/85 H 99 Room Air 06/02/22 19:20 36.7 C 50 L 18 141/85 H 99 Room Air 06/02/22 16:40 Room Air 06/02/22 15:30 63 20 135/62 98 Room Air O2 Flow Rate 06/03/22 14:26 06/03/22 14:10 06/03/22 14:00 06/03/22 13:50 4 06/03/22 13:40 6 06/03/22 13:33 10 06/03/22 08:46 06/02/22 22:30 06/02/22 19:46 06/02/22 19:20 06/02/22 16:40 06/02/22 15:30 Pain Intensity Abdomen: Pain Intensity: 2 Transfer of Care Handoff Completed per policy Notes Mental Status: alert / awake / arousable Patient Amnestic to Procedure: Yes Nausea / Vomiting: adequately controlled Pain: adequately controlled Airway Patency, RR, SpO2: stable & adequate BP & HR: stable & adequate Hydration State: stable & adequate Anesthetic Complications: no major complications apparent and Pt Satisfied with anesthetic care
[2022-06-03] MEDS: D5W AND 1/2NSS + 20MEQ KCL 20 MEQ/1,000 ML BAG IV SCH (15:29)
[2022-06-03] MEDS: KETOROLAC TROMETHAMINE 15 MG/ML VIAL IV PRN (17:50)
[2022-06-04] MEDS: metroNIDAZOLE 500 MG/100 ML BAG IV SCH ×3 (00:33→18:00)
[2022-06-04] MEDS: D5W AND 1/2NSS + 20MEQ KCL 20 MEQ/1,000 ML BAG IV SCH ×3 (00:33→20:16)
[2022-06-04] MEDS: ONDANSETRON INJ 2 MG/ML 2 ML VIAL IV PRN ×2 (01:09→09:38)
[2022-06-04] MEDS: PROMETHAZINE HCL 12.5 MG in SODIUM CHLORIDE 0.9% 50 ML IV PRN ×2 (01:26→11:24)
[2022-06-04] MEDS: KETOROLAC TROMETHAMINE 15 MG/ML VIAL IV PRN ×2 (01:45→10:01)
[2022-06-04] MEDS: CIPROFLOXACIN / D5W 400 MG/200 ML BAG IV SCH ×2 (05:32→18:00)
[2022-06-04 06:55] LABS: Potassium 3.5 mmol/L (3.5-5.1)
[2022-06-04 07:00] LABS: BUN Creatinine Ratio 8.8 (10-20); Creatinine Clr Calc Pharmacy 144.4 ml/min; Est GFR (Non-African American) 126.8 ml/min
[2022-06-04] MEDS ORDERED: KETOROLAC TROMETHAMINE 15 MG/ML VIAL IV ONE (11:36)
[2022-06-04] MEDS ORDERED: KETOROLAC 30 MG/ML VIAL IV PRN (11:45)
[2022-06-04] MEDS ORDERED: HYDROmorphone INJ 0.5 MG/0.5 ML SYR IV PRN (11:45)
--- NOTE | 2022-06-04 11:48 | Surgery Progress Note ---
Date of Service June 04, 2022 Assessment & Plan (1) Acute appendicitis: Plan: s/p lap appendectomy with minimal affect on his existing symptoms. No other intra-abdominal pathology noted at time of surgery. Appendix was inflamed c/w nonperforated appendicitis. Unclear why his symptoms are not improved. Bowels are functioning (no sign of obstruction/ ileus). ? covid related symptoms? Will change pain meds to dilaudid/ toradol in case morphine is contributing to nausea. Continue zofran/ phenergan. Add protonix. If no improvement with change of pain meds, will consider GI consult (2) COVID: Admission and Anticipated Discharge Date Admission Date: June 02, 2022 Subjective pt is s/p lap appendectomy yesterday with intraop findings notable for acute nonperforated appendicitis. Still writhing in pain, still nauseated with belching/ retching. Pain is severe, states the pain meds do not help and feels worse after takes them. Pain is in central abdomen (unchanged from previous). Had a bowel movement a little while ago. Physical Exam Constitutional: WD/WN, vitals as above Respiratory: normal respiratory effort, lungs clear to auscultation Cardiovascular: RRR, no murmur, no edema Gastrointestinal (Abdomen): Inspection/Auscultation: abdomen normal to inspection, + abdomen distended (mild c/w postop), normal bowel sounds and + abd ominal surgical incision (clean) Percussion/Palpation: + abdomen tender (lower pelvic) and abdomen soft Musculoskeletal: no cyanosis or clubbing, extremities motor strength 5/5 Neurologic: awake; no focal motor deficits Psychiatric: A+Ox3, euthymic affect Results & Data ([facility]) Vital Signs (Past 12 Hours) Vital Signs Temp Pulse Resp BP BP Pulse Ox O2 Del Method 06/04/22 08:01 37.2 C 49 L 16 129/70 99 Room Air 06/04/22 03:49 36.7 C 48 L 16 134/84 98 Room Air 06/04/22 00:08 37.1 C 56 L 16 157/92 H 148/89 H 99 Room Air Laboratory Results 06/04/22 Range/Units 05:52 Sodium 136 (136-145) mmol/L Potassium 3.5 (3.5-5.1) mmol/L Chloride 103 (98-107) mmol/L Carbon Dioxide 28 (21-32) mmol/L Anion Gap 5 (3-11) BUN 7 (6-23) mg/dl Creatinine 0.80 (0.6-1.4) mg/dl Est Cr Clr Drug Dosing 144.4 ml/min Est GFR ( Amer) 147.0 ml/min Est GFR (Non-Af Amer) 126.8 ml/min BUN/Creatinine Ratio 8.8 L (10-20) Glucose 113 H (70-99(Fasting)) mg/dl Calcium 9.0 (8.5-10.1) mg/dl (1) Acute appendicitis Acute appendicitis type: unspecified acute appendicitis type Qualified Code(s): K35.80 - Unspecified acute appendicitis
[2022-06-04] MEDS: HYDROmorphone INJ 1 MG/ML SYRINGE IV PRN (12:19)
[2022-06-04 22:40] VITALS: O2SAT 98
[2022-06-05] MEDS: metroNIDAZOLE 500 MG/100 ML BAG IV SCH ×2 (01:07→08:21)
[2022-06-05] MEDS: CIPROFLOXACIN / D5W 400 MG/200 ML BAG IV SCH (05:35)
[2022-06-05] MEDS: D5W AND 1/2NSS + 20MEQ KCL 20 MEQ/1,000 ML BAG IV SCH (05:36)
[2022-06-05 07:40] LABS: Basophils # (auto) 0.02 K/uL (0-0.2); Basophils % (auto) 0.3 %; Eosinophils # (auto) 0.03 K/uL (0-0.50); Eosinophils % (auto) 0.5 %; Hematocrit (blood only) 40.2 % (42.0-52.0); Hemoglobin 13.5 g/dl (14.0-18.0); Immature Granulocytes # (auto) 0.02 K/uL (0.01-0.20); Immature Granulocytes % (auto) 0.3 %; Lymphocytes # (auto) 2.74 K/uL (1.2-3.4); Lymphocytes % (auto) 43.6 %; Mean Corpuscular Hgb Conc 33.6 g/dL (32.0-36.0); Mean Corpuscular Volume 86.3 fL (80.0-100.0); Mean Platelet Volume 11.1 fL (9.4-12.4); Monocytes # (auto) 0.64 K/uL (0.11-0.59); Monocytes % (auto) 10.2 %; Neutrophils # (auto) 2.83 K/uL (1.40-6.50); Neutrophils % (auto) 45.1 %; Platelet Count 216 K/uL (130-400); RDW Coefficient of Variation 12.1 % (11.5-14.5); RDW Standard Deviation 38.4 fL (36.4-46.3); Red Blood Count 4.66 M/uL (4.70-6.10); White Blood Count 6.28 K/ul (4.8-10.8)
[2022-06-05 08:04] VITALS: BP 126/74; PULSE 53; TEMP 98.4
[2022-06-05 08:19] LABS: Calcium 8.7 mg/dl (8.5-10.1); Potassium 3.4 mmol/L (3.5-5.1)
[2022-06-05 08:25] LABS: BUN Creatinine Ratio 11.7 (10-20); Creatinine Clr Calc Pharmacy 150.1 ml/min; Est GFR (African American) 149.3 ml/min; Est GFR (Non-African American) 128.8 ml/min
[2022-06-05] MEDS: ONDANSETRON INJ 2 MG/ML 2 ML VIAL IV PRN ×2 (09:20→13:35)
[2022-06-05] MEDS: HYDROmorphone INJ 1 MG/ML SYRINGE IV PRN (09:23)
[2022-06-05] MEDS ORDERED: OPTIRAY 350 100ml IV ONE (10:29)
--- NOTE | 2022-06-05 10:57 | CT Scan Report ---
CT OF THE ABDOMEN AND PELVIS WITH CONTRAST CLINICAL HISTORY: POD # 2 lap appy, persistent vomiting COMPARISON STUDY: Appendix ultrasound June 02, 2022. TECHNIQUE: Following IV administration of 86 mL of Optiray, axial images of the abdomen and pelvis we re obtained from the lung bases to the proximal femurs. Images were reviewed in the axial, sagittal, and coronal planes. IV contrast was administered without complication. Automated exposure control wa s utilized for the study. A dose lowering technique was utilized adhering to the principles of ALARA . CT DOSE: 300.29 mGy.cm FINDINGS: Lung bases are unremarkable. Trace pneumoperitoneum is present. This is postsurgical. There is also minimal gas and stranding within the anterior abdominal wall which is postsurgical. A 2.4 cm subcutaneous periumbilical hyperdense collection favors a small hematoma at the port site. No intra- abdominal hematoma is present. Liver, spleen, adrenal glands, kidneys and pancreas are unremarkable. There is no biliary or pancreatic ductal dilatation. Gallbladder is mildly distended. There is no adj acent stranding. There is no hydronephrosis. Postoperative findings consistent with laparoscopic appe ndectomy are noted. There is a small amount of fluid within the right paracolic gutter. There is trac e fluid within the pelvis. There is no fluid collection. Caliber and wall thickness of small and larg e bowel are normal. There is no evidence for a bowel obstruction. Major vasculature is patent. IMPRESSION: 1. No significant abnormality following recent laparoscopic cholecystectomy. Trace pneumoperitoneum a nd a small amount of fluid within the right paracolic gutter and pelvis which are expected in the ear ly postoperative setting. Small subcutaneous hematoma at the periumbilical port site. 2. No bowel obstruction. No bowel wall thickening. ACT 112: Negative or not required by law. Electronically signed by: Arnaldo Guevara M.D. 06/05/2022 10:55 AM
[2022-06-05] MEDS ORDERED: PANTOprazole 40 MG in SYRINGE 0 ML IV SCH (11:00)
[2022-06-05] MEDS: PROMETHAZINE HCL 12.5 MG in SODIUM CHLORIDE 0.9% 50 ML IV PRN (11:32)
--- NOTE | 2022-06-05 13:42 | Gastrointestinal Consultation ---
Date of Consultation June 05, 2022 Assessment & Plan (1) Nausea & vomiting: Plan Spoke w the PA, Leonardo Dela Cruz. He was able to speak w the pt separate from his mother during which, the pt reported frequent marijuana use. His symptoms are very suggestive of cannabinoid hyperemesis. Suggested Emend, but pt and mother did not feel it was necessary and prefer to avoid medications. Supervising Physician Co-Signing Physician Notes I performed a history and physical examination of the patient today, including specifically on physical exam - soft abdomen. I have discussed the patient's management with the advanced practitioner. Please refer to the nurse practitioner's note for the documented findings and plan of care. Likely cannabinoids hyperemesis. Symptoms improved already and patient wants to go home. Recall GI if needed. History of Present Illness Reason for Consultation: Nausea, vomiting post lap appendectomy Requesting Physician: Dr. Lurdes Alanis Attending Physician: Lurdes Alanis MD History of Present Illness Mr. Luis Carlos Berumen is a 22 yr old male w/o a local PCP who presented to the ED on Jun 01, then returned again on 06/02 after having seen an OP provider w US results suggestive of appendicitis. He underwent lap appendectomy on 06/03. He did well his initial post op day but today had significant/persistent nausea and dry heaving. He denies any significant abdominal pain. He is also COVID (+) but was unaware until arrival here (no fevers,cough, or other respiratory issues). Allergies Allergy/AdvReac Type Severity Reaction Status Date / Time morphine AdvReac Severe Nausea Verified 06/04/22 19:07 Penicillins AdvReac Mild Hives Verified 06/02/22 16:15 Home Medications Medication Instructions Recorded Confirmed Type ondansetron 4 mg disintegrating 4 mg PO Q8H PRN nausea and 06/05/22 Rx tablet vomiting 5 days #15 tabs Patient History Medical History No pertinent family history No pertinent past medical history Surgical History H/O wisdom tooth extraction GETA ok Social History Smoking Status: Never smoker Hx Alcohol Use: Yes Alcohol type: hard liquor Hx Substance Use: Yes Last Used Substance Other:: last sunday 05/28 Preferred Language: Georgian Communication Ability: Effective Industrial Ecologist Required: No Beliefs That Will Affect Care: None Current Living Situation: Other Current Living Situation Comment: roommate Feels Safe at Home: Yes Safety Concerns: Feels Safe At This Time Assistive Devices: None Review of Systems Review of Systems: ROS: Gen: Denies weakness, fevers, weight loss Eyes: No eye redness, or pain, no recent vision changes Resp: No SOB, no cough Cardio: No palpitations/irregular beats, no chest pain GI: As per HPI : Denies pain on urination Skin: No jaundice, itching or new rashes Physical Exam Constitutional: WD/WN, vitals as above Eyes: PERRL, conjunctivae normal, anicteric sclerae ENMT: external ear and nose normal, oropharynx normal Neck: trachea midline, no thyromegaly Respiratory: normal respiratory effort, lungs clear to auscultation Cardiovascular: RRR, no murmur, no edema Gastrointestinal (Abdomen): Inspection/Auscultation: abdomen normal to inspection (w surgical dressings warm/dry) and + hypoactive bowel sounds; abdomen not distended Percussion/Palpation: + abdomen tender (minimal - in surgical areas.) and abdomen soft Musculoskeletal: no cyanosis or clubbing, extremities motor strength 5/5 Skin: no rashes, warm and dry Neurologic: PERRL, EOMI, accommodation nl, no face palsy, no dysarthria Psychiatric: A+Ox3, euthymic affect Lymphatic: no cervical or axillary lymphadenopathy Results & Data ([facility]) Vital Signs (Past 12 Hours) Vital Signs Temp Pulse Resp BP Pulse Ox O2 Del Method 06/05/22 08:04 36.9 C 53 L 15 126/74 98 Room Air Laboratory Results WBC 6.2, Hb 13.5, Hct 40.2, platelets 216, Na 138, K 3.4, Cl 106, CO2 28, BUn 9, Cr 0.7, glucose 101. Diagnostic Findings CTAP w IV contrast on 06/05/22 (post cholecystectomy): 1. No significant abnormality following recent laparoscopic cholecystectomy. Trace pneumoperitoneum and a small amount of fluid within the right paracolic gutter and pelvis which are expected in the early postoperative setting. Small subcutaneous hematoma at the periumbilical port site. 2. No bowel obstruction. No bowel wall thickening. (1) Nausea & vomiting Vomiting type: unspecified Qualified Code(s): R11.2 - Nausea with vomiting, unspecified
--- NOTE | 2022-06-05 14:40 | History & Physical Report ---
Date of Service June 05, 2022 Assessment & Plan Admission and Anticipated Discharge Date Admission Date: June 02, 2022 History of Present Illness Chief Complaint: Nausea/Vomiting, Abdominal Pain Primary Care Provider: NO PCP Allergies Allergy/AdvReac Type Severity Reaction Status Date / Time morphine AdvReac Severe Nausea Verified 06/04/22 19:07 Penicillins AdvReac Mild Hives Verified 06/02/22 16:15 Home Medications Medication Instructions Recorded Confirmed Type ondansetron 4 mg disintegrating 4 mg PO Q8H PRN nausea and 06/01/22 06/02/22 Rx tablet vomiting #30 tabs Past Med/Surg History Medical History No pertinent family history No pertinent past medical history Surgical History (Updated 06/03/22 @ 12:17 by Josi Mcadams DO) H/O wisdom tooth extraction GETA ok Social History Smoking Status: Never smoker Hx Alcohol Use: Yes Alcohol type: hard liquor Hx Substance Use: Yes Last Used Substance Other:: last sunday 05/28 Preferred Language: Egyptian Communication Ability: Effective Tailor Helper Required: No Beliefs That Will Affect Care: None Current Living Situation: Other Current Living Situation Comment: roommate Feels Safe at Home: Yes Safety Concerns: Feels Safe At This Time Assistive Devices: None Results & Data Results & Data ([facility]) Vital Signs (Past 12 Hours) Vital Signs Temp Pulse Resp BP Pulse Ox O2 Del Method 06/05/22 08:04 36.9 C 53 L 15 126/74 98 Room Air Code Status & VTE Plan VTE Prophylaxis Plan VTE Prophylaxis will be ordered: Yes PG Care Time/CCT Total # of Minutes Spent Total Time Spent with Patient: Total time spent is greater than 50% in coordination of care (as documented) at patient's floor/unit and/or counseling patient: Coding
--- NOTE | 2022-06-05 14:53 | Hospitalist Consultation ---
Date of Consultation June 05, 2022 Assessment & Plan (1) Nausea & vomitin-year-old male with intense nausea and vomiting status post laparoscopic appendectomy. * Thankfully, repeat imaging studies of the abdomen/pelvis demonstrate no acute findings. * Patient has apparently been experiencing more nausea than pain at this point. Certainly, there is question of whether the nausea could be precipitated by the administration of pain medication, however the patient has been unable to make this correlation. * Had discussion with patient regarding decreasing administration of narcotic medications if able and pain well controlled with other medications. * Certainly would prefer Zofran if he is tolerating this well. * Did have a discussion with the patient regarding marijuana use. He reports that he has been using marijuana relatively heavily for the last few months as he is currently not taking any credits for school while waiting to graduate. He had elected to stop using marijuana with his last use 1 week ago today. He has not experienced similar symptoms in the past, however there certainly could be a correlation to cyclic vomiting syndrome as his intense nausea does tend to lend itself more to this diagnosis. Certainly, this is a diagnosis of exclusion, however given the negative imaging studies and lack of other symptoms, this certainly could fit. * Encouraged the patient to take a hot shower and evaluate his symptoms at that point. * It should be noted that the patient had explained this to me in confidence and had dismissed his mother from the room prior to divulging this information. (2) Acute appendicitis: Repeat CT w/o acute findings. (3) COVID: Otherwise asymptomatic. Supervising Physician Co-Signing Physician Notes Patient was discharged by surgery before being seen by myself therefore we will not be billing for this encounter. I discussed the case with Leonardo Dela Cruz and agree based on history and normal imaging most likely diagnosis is cannabis hyperemesis syndrome. If patient returns to the emergency room he may benefit from capsaicin cream. History of Present Illness Reason for Consultation: Nausea/Vomiting, Abdominal Pain Attending Physician: Lurdes Alanis MD History of Present Illness Patient is a 22-year-old male with no significant past medical history who was initially admitted to this institution on 06/02 with ultrasound findings concerning for acute appendicitis. He received IV antibiotics and underwent laparoscopic appendectomy on 06/03. Since that time, the patient has had intense nausea and vomiting. Initially, he felt as though he was having a moderate amount of abdominal discomfort. He states that his pain has subsided quite a bit, but he describes waxing and waning significant nausea. He has not vomited as he reports that he has been unable to keep food down. A CAT scan was repeated today which demonstrated no significant findings. Laboratory results demonstrate no significant leukocytosis or anemia. He has slight hypokalemia, but otherwise a normal electrolyte panel. He is not tachycardic. He is not tachypneic. He is without reported significant abdominal exam findings Upon evaluation in room 380-1, the patient is awake, alert, and oriented. He complains of intense nausea. He does report that his pain has improved. He has not been able to eat food secondary to intense nausea. He denies any previous history of similar symptoms in the past. He has not had any other significant surgical procedures in the past which have necessitated the use of anesthesia. He is unable to correlate timeframe between receiving narcotic medications and nausea. Patient reports that he is graduating in September, but has completed enough credits and does not have any credits this semester. He has been living near campus as he still has a lease. He has a job in [employer] which she will start after graduation. Patient does not drink alcohol. He does admit that he has been smoking heavy amount of marijuana and made the decision a week ago today that he was going to minimize his use. He has never experienced any symptoms like this while smoking marijuana. He has not tried any other remedies to alleviate his symptoms otherwise. Otherwise, the patient denies complaints of dizziness, lightheadedness, blurry vision, double vision, tinnitus, hematemesis, chest pain, palpitations, shortness of breath, pleuritic pain, or diarrhea. Allergies Allergy/AdvReac Type Severity Reaction Status Date / Time morphine AdvReac Severe Nausea Verified 06/04/22 19:07 Penicillins AdvReac Mild Hives Verified 06/02/22 16:15 Home Medications Medication Instructions Recorded Confirmed Type ondansetron 4 mg disintegrating 4 mg PO Q8H PRN nausea and 06/05/22 Rx tablet vomiting 5 days #15 tabs Patient History Medical History No pertinent family history No pertinent past medical history Surgical History H/O wisdom tooth extraction REE robledo Social History Smoking Status: Never smoker Hx Alcohol Use: Yes Alcohol type: hard liquor Hx Substance Use: Yes Last Used Substance Other:: last sunday 05/28 Preferred Language: Latvian Communication Ability: Effective Database Marketing Specialist Required: No Beliefs That Will Affect Care: None Current Living Situation: Other Current Living Situation Comment: roommate Feels Safe at Home: Yes Safety Concerns: Feels Safe At This Time Assistive Devices: None Review of Systems Review of Systems: A complete 10 point review of systems was reviewed with the patient with pertinent positives and negatives as per history of present illness. All else were negative. Physical Exam Physical Exam: VITAL SIGNS - Vital signs and nursing notes were reviewed. GENERAL - 22-year-old male appearing his stated age who is in no acute distress. Communicates well with provider and answers questions appropriately. EYES - PERRL with EOMI bilaterally. Sclera anicteric. MOUTH/OROPHARYNX - Without perioral cyanosis. Buccal mucosa pink and moist. NECK - Neck with FROM. No nuchal rigidity. LUNGS - Chest wall symmetric without accessory muscle use, intercostals retractions, or central cyanosis. Normal vesicular breath sounds CTA B/L. No wheezes, rales, or rhonchi appreciated. CARDIAC - RRR with S1/S2. No murmur, rubs, or gallops appreciated. ABDOMEN - Abdominal contour flat without pulsations or visible masses. Trochar sites clean, dry, and intact. No TTP throughout. BS normoactive all four quadrants. Minimal tenderness to palpation appreciated in the epigastrium. No guarding. No Rebound Tenderness. EXTREMITIES - No clubbing or peripheral cyanosis. No pretibial edema present. +3/5 radial and dorsalis pedis pulses palpated throughout. +5/5 strength noted in UE/LE bilaterally. NEUROLOGIC - Cranial nerves II through XII grossly intact. PSYCH - A&Ox3 and cooperates fully with examiner. Pt is very pleasant and interacts well with examiner. Results & Data Results & Data ([facility]) Vital Signs (Past 12 Hours) Vital Signs Temp Pulse Resp BP Pulse Ox O2 Del Method 06/05/22 08:04 36.9 C 53 L 15 126/74 98 Room Air PG Care Time/CCT Total # of Minutes Spent Total Time Spent with Patient: Total time spent is greater than 50% in coordination of care (as documented) at patient's floor/unit and/or counseling patient: Coding Level of Care Code None Diagnoses Nausea & vomiting R11.2 Vomiting type: unspecified Acute appendicitis K35.80 Acute appendicitis type: unspecified acute appendicitis type COVID U07.1 Time Spent (min) 65 (1) Nausea & vomiting Vomiting type: unspecified Qualified Code(s): R11.2 - Nausea with vomiting, unspecified (2) Acute appendicitis Acute appendicitis type: unspecified acute appendicitis type Qualified Code(s): K35.80 - Unspecified acute appendicitis
--- NOTE | 2022-06-05 15:24 | Surgery Progress Note ---
Date of Service June 05, 2022 Assessment & Plan (1) Acute appendicitis: Plan: s/p lap appendectomy with minimal affect on his existing symptoms. No other intra-abdominal pathology noted at time of surgery. Appendix was inflamed c/w nonperforated appendicitis. Unclear why his symptoms are not improved. Bowels are functioning (no sign of obstruction/ ileus). ? covid related symptoms? Will change pain meds to dilaudid/ toradol in case morphine is contributing to nausea. Continue zofran/ phenergan. Add protonix. If no improvement with change of pain meds, will consider GI consult 06/05/2022 3:23PM Dr. Nguyen F/U S/P lap appy, POD 2, COVID +, doing fine, pt wants to go home today, the post-op care instruction was given, I answered all questions, F/U 2 weeks, (2) COVID: Admission and Anticipated Discharge Date Admission Date: June 02, 2022 Subjective F/U S/P lap appy, POD 2 COVID + pt is doing fine, no abdominal pain, no nausea, no vomiting, no fever, no headache, no cough, tolerated diet, passed some gas. Physical Exam Constitutional: WD/WN, vitals as above Eyes: PERRL, conjunctivae normal, anicteric sclerae Neck: trachea midline, no thyromegaly Respiratory: normal respiratory effort, lungs clear to auscultation Cardiovascular: RRR, no murmur, no edema Gastrointestinal (Abdomen): soft, NT, Nd, all incisions intact, no redness, BS + Musculoskeletal: no cyanosis or clubbing, extremities motor strength 5/5 Neurologic: patellar DTR's 2+ bilat, sensation intact Psychiatric: A+Ox3, euthymic affect Results & Data ([facility]) Vital Signs (Past 12 Hours) Vital Signs Temp Pulse Resp BP Pulse Ox O2 Del Method 06/05/22 08:04 36.9 C 53 L 15 126/74 98 Room Air Laboratory Results Abnormal lab results 06/05/22 06/05/22 Range/Units 07:08 07:08 RBC 4.66 L (4.70-6.10) M/uL Hgb 13.5 L (14.0-18.0) g/dl Hct 40.2 L (42.0-52.0) % Frio # (Auto) 0.64 H (0.11-0.59) K/uL Potassium 3.4 L (3.5-5.1) mmol/L Glucose 101 H (70-99(Fasting)) mg/dl (1) Acute appendicitis Acute appendicitis type: unspecified acute appendicitis type Qualified Code(s): K35.80 - Unspecified acute appendicitis
--- NOTE | 2022-06-09 14:46 | Discharge Summary ---
Date of Service June 09, 2022 Admission HPI Per Admitting Provider 22 yr old man seen in ER for persistent nausea and vomiting associated with intermittent abdominal pain, starting on Sun. Thought he might have food poisoning as he had eaten deli meat. Seen in ER and abdominal xrays unremarkable. Sent home after symptoms improved with zofran. The symptoms recurred and he has been unable to keep anything down. Gets episodes of moderate - severe intensity sharp stabbing pain in the mid abdomen, lasts a few hours at a time, not related to activity or eating. Saw his pcp and US ordered. This showed acute appendicitis with focal discontinuity of the wall. Still feels overall weak and lightheaded. No fevers/ chills. No similar symptoms. No sick contacts. Principal Diagnosis Acute appendicitis Discharge Data Allergies Allergy/AdvReac Type Severity Reaction Status Date / Time morphine AdvReac Severe Nausea Verified 06/04/22 19:07 Penicillins AdvReac Mild Hives Verified 06/02/22 16:15 Consultations 06/02/22 12:12 ED Decision to Admit Stat 06/05/22 11:24 Consult Hospitalist Routine Procedures Performed Operation Date: 06/03/22 10:21 Actual Procedures p Laparoscopic Appendectomy(Not Applicable) - Lurdes Alanis MD Ordered Studies 06/05/22 09:35 CT Abd and Pelvis [CT abd pelvis IV con only] Urgent Hospital Course (1) Acute appendicitis: Patient was initially scheduled to proceed with laparoscopic appendectomy from emergency department however his preop COVID test came back positive and it was decided to proceed with conservative management with IV antibiotics first given risk of anesthesia with a +COVID infection and patient was clinically stable with no fever and no leukocytosis. His pain continued with IV antibiotics so it was elected to proceed with laparoscopic appendectomy on Hospital day # 1. Patient tolerated procedure well. Routine appendectomy was performed without complications. There was no evidence of perforation or abscess. Patient continued to have significant pain postoperatively with dry heaves and nausea. Morphine was changed to Dilaudid with recurrent symptoms. CT scan was ordered on POD # 2 which was unremarkable. Hospitalist and gastroenterology was consulted due to persistent abdominal pain with nausea . Patient proceeded to tell hospitalist he was smoking marijuana and just recently stopped. Perry his symptoms could be related to cyclical vomiting syndrome. He was feeling better on POD # 2 and was discharged home in stable condition. (2) COVID: Total Time Total Time Spent Total Time Spent (In Minutes): 30 minutes Discharge Plan Discharge Items Patient Disposition: Home - Self-Care Reason For Visit: ACUTE APPENDICITIS Discharge Diagnosis: Acute appendicitis Activity: Per Instructions section Non-emergency contact: Primary Care Provider and Surgeon Call non-emergency contact if: you have any medication questions, your pain is not controlled, your pain is worsening, you have a fever, your temperature is above 101, your wound has increased redness, your wound has increased drainage and your wound pain has increased Follow-up/Referrals: PCP,NO [Primary Care Provider] - Diet: Regular Addtl Attending Provider Instructions: Post-Surgical ~Discharge Instructions Activity Recommendations: - lifting limitation: (10 pounds for 2 weeks), - exercise/sex/sports limit: (nonstrenuous for 2 weeks), - driving or machine use limit: (none for 1 week or until pain free), - Shower/bathe limit: (may shower beginning tomorrow) Diet: - Resume previous diet SPECIAL CARE INSTRUCTIONS: - May shower in 24 hours. Let water run over area and pat dry. - Leave steri strips on for one week and then remove. - Call the surgeon's office with any questions or concerns - - (ex. temperature higher than 101 degrees F, excessive bleeding or pain). MEDICATIONS: - Resume previous medications unless instructed otherwise by your surgeon. - May alternate extra strength Tylenol and Ibuprofen as needed for pain - 650 mg Tylenol every 6 hours as needed - Ibuprofen 600 mg every 6 hours as needed (take with food) - May take daily stool softener (Colace) to prevent constipation or straining. Drink plenty of water daily. FOLLOW UP VISIT: - If not already scheduled, please call the office to schedule a two week follow-up appointment. Office number Your nausea could be secondary to recent marijuana use. Would recommend limiting use and take warm showers to help with the nausea. You can take Zofran as needed for nausea as well. Pending Studies at Discharge: Yes (appendix pathology, will be reviewed at follow-up visit) Stand-Alone Forms: [employer], Smoking Cessation Medications and DC Order Prescriptions: New ondansetron 4 mg tablet,disintegrating 4 mg PO Q8H PRN (Reason: nausea and vomiting) 5 Days Qty: 15 0RF Discontinued ondansetron 4 mg tablet,disintegrating 4 mg PO Q8H PRN (Reason: nausea and vomiting) Qty: 30 0RF Rx Instructions: Last taken @0400 Discharge Orders: Discharge Order (Routine); Ordered 06/05/22 Ordered By: Beulah Rahman/Other Patient Handouts: COVID-19 Home Care, Appendectomy Admission Data Admit Date/Time: 06/02/22 15:09 Attending Provider: Lurdes Alanis Admit Provider: Lurdes Alanis Primary Care Provider: PCP,NO Other Providers: Lurdes Alanis ; Sylvain Camacho Other Interventions: Discharge Summary Assessment (RN) Last Done: 06/05/22 16:15
== END 2022-06-05 16:44 | disposition home or self-care (01) | DRG 341 ==
LOC: ED 11:29 → 3N 15:09